=== PATIENT | male | born 1980 | race Caucasian/White ===

== ENCOUNTER 2018-10-29 17:25 | Emergency (ER) | payer OTHER ==
[2018-10-29] MEDS ORDERED: methylPREDNISolone SOD SUCC 125 MG/2 ML VIAL IM ONE (17:45)
--- NOTE | 2018-10-29 17:49 | ED Physician Documentation ---
Low Back Pain - HISTORIAN Historian: patient - HPI Chief Complaint: Low Back Pain/ Injury Additional Information: Patient is a 38-year-old male that presents to the ER with c/o chronic back pain that started to flare 2 weeks ago. He states that he has right sciatica pain. He has received steroid injections in the past which have helped. He denies any difficulty with ambulating- he states that sometimes he feels like his right leg is going to give out. He has trouble getting comfortable while sitting. No history of back surgeries. History: history of chronic pain:, back pain Onset: days ago (2 weeks) Duration: intermittent Recent Injury: No Context: other (chronic) Where: home Other Injuries: denies: neck, head, back Severity: mild Quality: burning, similar- prior back pain Associated Symptoms: denies: fever, chills, nausea, vomiting Worsened By:: movement to RT flexion Relieved By: supine, remaining still - ROS CONST: no problems CVS/RESP: none EYES/ENT: none MS/SKIN/LYMPH: none Neuro/Psych: none GI/: denies: abdominal pain - PAST HX Past History: back pain Surgeries/Procedures: none Immunizations: UTD Allergies/Adverse Reactions: Allergies Allergy/AdvReac Type Severity Reaction Status Date / Time Penicillins Allergy Verified 10/29/18 17:49 Home Medications: Ambulatory Orders Medication Instructions Recorded Methylprednisolone [Medrol] 4 mg PO DAILY #21 tab.ds.pk 10/29/18 NK 10/29/18 - SOCIAL HX Smoking History: greater than 1 pack/day Alcohol Use: occasionally Drug Use: none - FAMILY HX Family History: none - VITAL SIGNS Vital Signs: Vital Signs Temp Pulse Resp BP Pulse Ox 98.5 F 75 16 138/92 97 10/29/18 17:35 10/29/18 17:35 10/29/18 17:35 10/29/18 17:35 10/29/18 17:35 - REVIEWED ASSESSMENTS Nursing Assessment Reviewed: Yes Vitals Reviewed: Yes ED Results Lab/Radiology - Orders Orders: ED Orders Category Date Time Status methylPREDNISolone SOD SUCC [SOLU-Medrol] Med 10/29/18 17:45 Discontinued 125 mg IM NOW ONE Low Back Pain/Injury - Physical Exam General Appearance: no acute distress, alert EENT: eye inspection normal, ENT inspection normal, pharynx normal, TYRONE Neck: non-tender, painless ROM Resp/CVS: chest non-tender, breath sounds nml, heart sounds nml, reg. rate & rhythm Abdomen: non-tender Back: non-tender, painless ROM, muscle spasm Straight Leg Raising: Negative Left, Negative Right Neuro/Psych: oriented x3, motor nml, sensation nml, mood/affect nml Skin: warm/dry, normal color Extremities: non-tender, normal range of motion Discharge Clincal Impression: Chronic low back pain with right-sided sciatica Prescriptions: Methylprednisolone [Medrol] 4 mg PO DAILY #21 tab.ds.pk Referrals: Primary Doctor,No [Primary Care Provider] - 2 Days Additional Instructions: Steroid shot given in the ER Start Medrol dose pack tomorrow- take as directed Referral sent to pain specialist- you will be receiving phone call for appointment Follow up with the clinic next door to establish care [phone] Continue to alternate Tylenol and Ibuprofen as needed for pain. Condition: Good Disposition: 01 HOME, SELF-CARE Decision to Admit: NO Decision Time: 18:05
[2018-10-29 17:50] VITALS: BP 138/92
== END 2018-10-29 18:05 | disposition home or self-care (01) ==
LOC: ED 17:25
DX: M54.41 Lumbago with sciatica, right side (principal); G89.29 Other chronic pain
CPT/HCPCS: 96372; 99283; J2930